=== PATIENT | female | born 1975 | race Caucasian/White ===

== ENCOUNTER 2016-04-07 12:01 | Emergency (ER) | payer BC, MEDICAID ==
[2016-04-07] MEDS ORDERED: OPTIRAY 350 100 ML VIAL EDI IV ONE (12:02)
[2016-04-07] MEDS ORDERED: SODIUM CHLORIDE 0.9% 1,000 ML ONE (16:06)
[2016-04-07] MEDS ORDERED: CLINDAMYCIN 600 MG/4 ML VIAL ONE (16:06)
[2016-04-07] MEDS ORDERED: KETOROLAC 30 MG/ML VIAL ONE (16:06)
[2016-04-07] MEDS ORDERED: ED CLINDAMYCIN PREMIX 50 ML IV ONE (16:08)
[2016-04-07] MEDS ORDERED: MORPHINE 4 MG/ML SYR ONE (17:08)
[2016-04-07] MEDS ORDERED: ONDANSETRON 4 MG VIAL ONE (17:08)
[2016-04-07] MEDS ORDERED: LIDOCAINE 1% MDV 0 ML ONE (17:09)
[2016-04-07] MEDS ORDERED: LIDOCAINE 2% 20 ML ONE (17:10)
== END 2016-04-07 20:28 | disposition home or self-care (01) ==
LOC: ER 12:01
DX: K61.1 Rectal abscess (principal)
CPT/HCPCS: 36415; 72193; 80053; 85025; 85652; 96361; 96365; 96375